=== PATIENT | female | born 1970 | race Caucasian/White ===

== ENCOUNTER 2022-04-19 12:12 | Outpatient (NON) | payer OTHER, SELFPAY | END 2022-04-19 12:13 | disposition home or self-care (01) | PROVIDERS: PCP Physician Assistant Medical; Visit Provider Nurse Practitioner | DX: D04.5 Carcinoma in situ of skin of trunk (principal) | CPT/HCPCS: 88305 ==

== ENCOUNTER 2022-05-17 13:12 | Outpatient (NON) | payer OTHER, SELFPAY | END 2022-05-17 13:13 | disposition home or self-care (01) | LOC: ANHLAB 13:12 | PROVIDERS: PCP Physician Assistant Medical; Visit Provider Nurse Practitioner | DX: D04.5 Carcinoma in situ of skin of trunk (principal) | CPT/HCPCS: 88305; 88331 ==